=== PATIENT | female | born 2000 | race Caucasian/White ===

== ENCOUNTER 2022-02-04 12:05 | Day surgery (SDC) | payer OTHER ==
[~2022-02-04] VITALS: Ht 160 cm; Wt 57.1 kg
[~2022-02-04 12:05] MED LIST: ALL10TAB2 PO; APRITAB PO; NS 1,000 ML IV ONE; VENTAER INH
[2022-02-04] MEDS ORDERED: fentaNYL 100 MCG/2 ML INJECTION As Ordered ONE (13:56)
[2022-02-04] MEDS ORDERED: propofoL 200 MG/20 ML VIAL As Ordered ONE ×2 (13:56→14:07)
[2022-02-04] MEDS ORDERED: LIDOCAINE 2% 100MG/5ML SDV (FOR ANES.) As Ordered ONE (13:56)
[2022-02-04] MEDS ORDERED: SIMETHICONE 40MG/0.6ML DROPS 30ML As Ordered ONE (14:24)
[2022-02-04 14:43] VITALS: BP 116/52
== END 2022-02-04 15:01 | disposition home or self-care (01) ==
LOC: M OPP 12:05
PROVIDERS: ATTEND Internal Medicine Gastroenterology
DX: K20.0 Eosinophilic esophagitis (principal); K22.2 Esophageal obstruction; K29.60 Other gastritis without bleeding; R13.10 Dysphagia, unspecified; Z79.3 Long term (current) use of hormonal contraceptives; Z79.51 Long term (current) use of inhaled steroids; Z91.018 Allergy to other foods; E04.1 Nontoxic single thyroid nodule; J45.909 Unspecified asthma, uncomplicated; G43.909 Migraine, unspecified, not intractable, without status migrainosus
CPT/HCPCS: 43239; 43249; 87428; 88305; J3010

== ENCOUNTER 2022-07-30 11:41 | Day surgery (SDC) | payer OTHER ==
[~2022-07-30] VITALS: Ht 160 cm; Wt 56.2 kg
[2022-07-30] MEDS ORDERED: fentaNYL 100 MCG/2 ML INJECTION As Ordered ONE (13:32)
[2022-07-30] MEDS ORDERED: propofoL 200 MG/20 ML VIAL As Ordered ONE ×2 (13:34→14:34)
[2022-07-30] MEDS ORDERED: LIDOCAINE 2% 100MG/5ML SDV (FOR ANES.) As Ordered ONE (13:34)
[2022-07-30 14:50] VITALS: BP 121/71
== END 2022-07-30 15:03 | disposition home or self-care (01) ==
LOC: M OPP 11:41
PROVIDERS: ATTEND Internal Medicine Gastroenterology
DX: K20.0 Eosinophilic esophagitis (principal); K29.70 Gastritis, unspecified, without bleeding
CPT/HCPCS: 43239; 43249; J3010